=== PATIENT | male | born 1950 | race African-American/Black ===

== ENCOUNTER 2017-10-18 21:39 | Emergency (ER) | payer MEDICAID, OTHER ==
[~2017-10-18] VITALS: Ht 188 cm; Wt 68.0 kg
[~2017-10-18 21:39] MED LIST: ALBU18HF2 IH; MOME13HF INH; TIOT18CA3 IH
[2017-10-19] MEDS ORDERED: IPRATROPIUM/ALBUTEROL 0.5-3(2.5)MG/3ML NEB HHN ONE ×2 (00:45→04:45)
[2017-10-19] MEDS ORDERED: PREDNISONE 20MG TABLET PO ONE (00:45)
[2017-10-19 06:50] VITALS: BP 138/88
== END 2017-10-19 07:31 | disposition home or self-care (01) ==
LOC: ER 21:39
DX: J44.1 Chronic obstructive pulmonary disease with (acute) exacerbation (principal); F17.200 Nicotine dependence, unspecified, uncomplicated
CPT/HCPCS: 36415; 71010; 84484; 93005; 94640; 99285; J7512; J7620

== ENCOUNTER 2019-08-16 18:46 | Inpatient (IN) | payer MEDICARE, MEDICAID ==
[~2019-08-16] VITALS: Ht 188 cm; Wt 78.5 kg
[2019-08-16] MEDS ORDERED: METHYLPREDNISOLONE SOD SUCC 125 MG/2 ML VIAL IV STA (19:18)
[2019-08-16] MEDS ORDERED: ALBUTEROL (0.083%) 2.5MG/3ML NEB HHN STA ×2 (19:18→21:46)
[2019-08-16] MEDS ORDERED: IPRATROPIUM BROMIDE (0.02%) 0.5MG/2.5ML NEB HHN STA (19:18)
[2019-08-16] MEDS ORDERED: SODIUM CHLORIDE 0.9% 1,000 ML IV ONE (19:18)
[2019-08-16] MEDS ORDERED: MAGNESIUM 2 G PREMIX 50 ML IV STA (19:18)
[2019-08-16 19:28] LABS: BASOPHILS % 0.6 % (0.0-2.0); EOSINOPHILS % 1.6 % (0.0-5.0); LYMPHOCYTES % 24.8 % (20.0-50.0); MEAN CORPUSCULAR HEMOGLOBIN 29.1 pg (28.0-32.0); MEAN CORPUSCULAR VOLUME 87.5 fL (80.0-94.0); MEAN PLATELET VOLUME 7.4 fl (7.4-10.4); MONOCYTES % 8.7 % (2.0-8.0); NEUTROPHILS % 64.3 % (40.0-76.0); PLATELET 246 x1000/uL (130-400); RED BLOOD CELL COUNT 5.83 mill/uL (4.7-6.1); RED CELL DISTRIBUTION WIDTH 14.8 % (11.6-14.6)
[2019-08-16 19:29] LABS: CHLORIDE 107 mEq/L (98-107)
[2019-08-16 19:30] LABS: INR 1.1; PROTHROMBIN TIME 11.7 sec (9.6-11.0)
[2019-08-16] MEDS ORDERED: LORAZEPAM 0.5MG TABLET PO PRN (20:45)
[2019-08-16] MEDS ORDERED: NITROGLYCERIN 0.4MG TABLET SL SL PRN (20:45)
[2019-08-16] MEDS ORDERED: MAGNESIUM/ALUMINUM HYDROXIDE/SIMETHICONE 30ML UDC PO PRN (20:45)
[2019-08-16] MEDS ORDERED: ACETAMINOPHEN 325MG TABLET PO PRN (20:45)
[2019-08-16] MEDS ORDERED: ONDANSETRON HCL 4MG/2ML INJ IV PRN (20:45)
[2019-08-16] MEDS ORDERED: CLONIDINE 0.1MG TABLET PO PRN (20:45)
[2019-08-16] MEDS ORDERED: IPRATROPIUM/ALBUTEROL 0.5-3(2.5)MG/3ML NEB NEB PRN (20:45)
[2019-08-16] MEDS ORDERED: ZOLPIDEM TARTRATE 5MG TABLET PO PRN (20:45)
[2019-08-16] MEDS ORDERED: MORPHINE SULFATE 2 MG/ML CPJ (NOT FOR IM USE) IV ONE (21:15)
[2019-08-16 23:40] VITALS: BP 138/78
[2019-08-16] MEDS: IPRATROPIUM/ALBUTEROL 0.5-3(2.5)MG/3ML NEB HHN SCH (23:58)
[2019-08-17] VITALS (14 sets, daily range): BP systolic 107–129; BP diastolic 55–81
[2019-08-17] MEDS: ASCORBIC ACID 500 MG TABLET PO SCH ×3 (00:24→20:08)
[2019-08-17] MEDS: FAMOTIDINE 20MG TABLET PO SCH ×3 (00:24→20:08)
[2019-08-17] MEDS: GUAIFENESIN/DM 600MG/30MG ER TAB 12HR PO SCH ×3 (00:24→20:08)
[2019-08-17] MEDS: DILTIAZEM HCL 60MG TABLET PO SCH ×4 (00:25→17:43)
[2019-08-17] MEDS ORDERED: LEVOFLOXACIN 500MG PREMIX 100 ML IV NR (01:00)
[2019-08-17 01:21] LABS: CREATINE KINASE 293 IU/L (39-308)
[2019-08-17 01:22] LABS: CREATINE KINASE MB FRACTION 4.2 ng/mL (0.5-3.6)
[2019-08-17] MEDS: IPRATROPIUM/ALBUTEROL 0.5-3(2.5)MG/3ML NEB HHN SCH ×5 (05:01→21:00)
[2019-08-17] MEDS: METHYLPREDNISOLONE SOD SUCC 125 MG/2 ML VIAL IV SCH ×3 (05:48→21:25)
[2019-08-17 06:42] LABS: CREATINE KINASE 353 IU/L (39-308)
[2019-08-17 06:43] LABS: CREATINE KINASE MB FRACTION 4.8 ng/mL (0.5-3.6)
[2019-08-17 06:59] LABS: *AMPHETAMINES SCREEN URINE NEGATIVE (NEGATIVE); *BARBITURATES SCREEN URINE NEGATIVE (NEGATIVE); *BENZODIAZEPINES SCREEN URINE NEGATIVE (NEGATIVE); *COCAINE SCREEN URINE NEGATIVE (NEGATIVE)
[2019-08-17 07:00] LABS: CANNABINOID URINE SCREEN NEGATIVE (NEGATIVE); METHADONE URINE SCREEN NEGATIVE (NEGATIVE); OPIATES URINE SCREEN PRESUMTIVE POSITIVE (NEGATIVE); PHENCYCLIDINE URINE SCREEN NEGATIVE (NEGATIVE)
[2019-08-17] MEDS: ASPIRIN 325MG EC TABLET PO SCH (08:10)
[2019-08-17] MEDS: ZINC SULFATE 220 MG ( 50 ) CAPSULE PO SCH (08:10)
[2019-08-17] MEDS: ENOXAPARIN 40MG/0.4ML SYR SUBCUT SCH (08:11)
[2019-08-17] MEDS: TRAMADOL 50MG TABLET PO PRN (13:13)
[2019-08-17 14:59] LABS: BG BASE EXCESS -1.7 mmol/L (-2.0-2.0); BG CARBOXYHEMOGLOBIN 0.4 % (0.5-1.5); BG FRACTION INSPIRED OXYGEN 40; BG HCO3 ACT 22.5 mmol/L (22.0-26.0); BG METHEMOGLOBIN 0.5 % (0.0-1.5); BG OXYHEMOGLOBIN 98.1 % (94.0-97.0); BG PCO2 36.4 mmHg (35.0-45.0); BG PH 7.408 (7.350-7.450); BG PO2 144.3 mmHg (75.0-100.0); BG SAMPLE SITE RIGHT RADIAL; BG TOTAL HEMOGLOBIN 15.5 g/dL (12.0-18.0); BG VENT MODE MASK - BIPAP; BG VENT RATE 14 set
[2019-08-17] MEDS ORDERED: LEVOFLOXACIN 500MG PREMIX 100 ML IV SCH (20:00)
[2019-08-18] VITALS (25 sets, daily range): BP systolic 103–148; BP diastolic 41–108
[2019-08-18] MEDS: DILTIAZEM HCL 60MG TABLET PO SCH ×4 (00:07→18:00)
[2019-08-18] MEDS: IPRATROPIUM/ALBUTEROL 0.5-3(2.5)MG/3ML NEB HHN SCH ×6 (00:21→20:58)
[2019-08-18] MEDS: METHYLPREDNISOLONE SOD SUCC 125 MG/2 ML VIAL IV SCH ×3 (06:04→21:44)
[2019-08-18] MEDS: GUAIFENESIN 200MG/10ML SUGAR FREE UDC PO PRN ×2 (08:38→08:40)
[2019-08-18] MEDS: ZINC SULFATE 220 MG ( 50 ) CAPSULE PO SCH (08:38)
[2019-08-18] MEDS: DOCUSATE SODIUM 100MG CAPSULE PO PRN (08:38)
[2019-08-18] MEDS: FAMOTIDINE 20MG TABLET PO SCH ×2 (08:38→21:44)
[2019-08-18] MEDS: ASPIRIN 325MG EC TABLET PO SCH (08:38)
[2019-08-18] MEDS: ASCORBIC ACID 500 MG TABLET PO SCH ×2 (08:38→21:44)
[2019-08-18] MEDS: GUAIFENESIN/DM 600MG/30MG ER TAB 12HR PO SCH ×2 (08:48→22:24)
[2019-08-18] MEDS: ENOXAPARIN 40MG/0.4ML SYR SUBCUT SCH (10:24)
[2019-08-18] MEDS: CEFEPIME 1,000 MG in DEXTROSE 5% WATER 50 ML IV SCH ×2 (11:17→22:24)
[2019-08-18] MEDS: TRAMADOL 50MG TABLET PO PRN (21:45)
[2019-08-19] VITALS (27 sets, daily range): BP systolic 102–161; BP diastolic 45–106
[2019-08-19] MEDS: IPRATROPIUM/ALBUTEROL 0.5-3(2.5)MG/3ML NEB HHN SCH ×7 (00:33→21:05)
[2019-08-19] MEDS: DILTIAZEM HCL 60MG TABLET PO SCH ×5 (00:45→23:47)
[2019-08-19] MEDS: METHYLPREDNISOLONE SOD SUCC 125 MG/2 ML VIAL IV SCH ×3 (06:33→22:00)
[2019-08-19] MEDS: ASPIRIN 325MG EC TABLET PO SCH (09:08)
[2019-08-19] MEDS: ASCORBIC ACID 500 MG TABLET PO SCH ×2 (09:08→21:12)
[2019-08-19] MEDS: ENOXAPARIN 40MG/0.4ML SYR SUBCUT SCH (09:08)
[2019-08-19] MEDS: FAMOTIDINE 20MG TABLET PO SCH ×2 (09:08→21:12)
[2019-08-19] MEDS: ZINC SULFATE 220 MG ( 50 ) CAPSULE PO SCH (09:08)
[2019-08-19] MEDS: GUAIFENESIN/DM 600MG/30MG ER TAB 12HR PO SCH ×2 (09:19→21:20)
[2019-08-19] MEDS: CEFEPIME 1,000 MG in DEXTROSE 5% WATER 50 ML IV SCH ×2 (11:00→23:39)
[2019-08-19 11:32] LABS: HEMATOCRIT 46.5 % (42.0-52.0); HEMOGLOBIN 15.4 g/dL (14.0-18.0); MEAN CORPUSCULAR HEMOGLOBIN 29.1 pg (28.0-32.0); MEAN CORPUSCULAR VOLUME 87.9 fL (80.0-94.0); PLATELET 254 x1000/uL (130-400); RED CELL DISTRIBUTION WIDTH 14.7 % (11.6-14.6)
[2019-08-19 11:38] LABS: CHLORIDE 106 mEq/L (98-107)
[2019-08-19] MEDS ORDERED: TERBUTALINE SULFATE 1MG/ML VIAL SUBCUT NR (12:45)
[2019-08-19] MEDS: FLUTICASONE PROPIONATE 50MCG/SPRAY BOTTLE BOTHNSTRLS SCH (21:19)
[2019-08-20] VITALS (25 sets, daily range): BP systolic 107–154; BP diastolic 48–108
[2019-08-20] MEDS: IPRATROPIUM/ALBUTEROL 0.5-3(2.5)MG/3ML NEB HHN SCH ×6 (00:49→20:33)
[2019-08-20] MEDS: METHYLPREDNISOLONE SOD SUCC 125 MG/2 ML VIAL IV SCH ×3 (06:38→23:23)
[2019-08-20] MEDS: DILTIAZEM HCL 60MG TABLET PO SCH ×4 (06:41→23:23)
[2019-08-20 06:58] LABS: CHLORIDE 110 mEq/L (98-107)
[2019-08-20 07:03] LABS: HEMATOCRIT 45.2 % (42.0-52.0); HEMOGLOBIN 15.1 g/dL (14.0-18.0); MEAN CORPUSCULAR HEMOGLOBIN 29.4 pg (28.0-32.0); MEAN CORPUSCULAR VOLUME 87.8 fL (80.0-94.0); PLATELET 243 x1000/uL (130-400); RED BLOOD CELL COUNT 5.15 mill/uL (4.7-6.1); RED CELL DISTRIBUTION WIDTH 14.7 % (11.6-14.6)
[2019-08-20] MEDS: ENOXAPARIN 40MG/0.4ML SYR SUBCUT SCH (09:28)
[2019-08-20] MEDS: FAMOTIDINE 20MG TABLET PO SCH ×2 (09:28→21:40)
[2019-08-20] MEDS: ASCORBIC ACID 500 MG TABLET PO SCH ×2 (09:28→21:40)
[2019-08-20] MEDS: GUAIFENESIN/DM 600MG/30MG ER TAB 12HR PO SCH ×2 (09:29→21:56)
[2019-08-20] MEDS: ASPIRIN 325MG EC TABLET PO SCH (09:29)
[2019-08-20] MEDS: ZINC SULFATE 220 MG ( 50 ) CAPSULE PO SCH (09:29)
[2019-08-20] MEDS: FLUTICASONE PROPIONATE 50MCG/SPRAY BOTTLE BOTHNSTRLS SCH ×2 (09:41→21:40)
[2019-08-20] MEDS: CEFEPIME 1,000 MG in DEXTROSE 5% WATER 50 ML IV SCH ×2 (11:00→23:17)
[2019-08-20] MEDS ORDERED: TERBUTALINE SULFATE 1MG/ML VIAL SUBCUT SCH (17:00)
[2019-08-20] MEDS: THEOPHYLLINE ANHYDROUS 80 MG/15 ML 120ML PO SCH (21:57)
[2019-08-21] VITALS (12 sets, daily range): BP systolic 124–142; BP diastolic 72–91
[2019-08-21] MEDS: IPRATROPIUM/ALBUTEROL 0.5-3(2.5)MG/3ML NEB HHN SCH ×6 (00:35→20:13)
[2019-08-21] MEDS: ACETYLCYSTEINE 100MG/ML 10% VIAL 4ML INH SCH ×4 (00:35→15:38)
[2019-08-21] MEDS: METHYLPREDNISOLONE SOD SUCC 125 MG/2 ML VIAL IV SCH ×3 (05:23→17:27)
[2019-08-21] MEDS: DILTIAZEM HCL 60MG TABLET PO SCH ×3 (05:25→17:27)
[2019-08-21 06:50] LABS: HEMATOCRIT 46.3 % (42.0-52.0); HEMOGLOBIN 15.2 g/dL (14.0-18.0); MEAN CORPUSCULAR HEMOGLOBIN 28.8 pg (28.0-32.0); MEAN CORPUSCULAR VOLUME 87.6 fL (80.0-94.0); PLATELET 245 x1000/uL (130-400); RED BLOOD CELL COUNT 5.28 mill/uL (4.7-6.1); RED CELL DISTRIBUTION WIDTH 14.7 % (11.6-14.6)
[2019-08-21 07:49] LABS: CHLORIDE 108 mEq/L (98-107)
[2019-08-21] MEDS: THEOPHYLLINE ANHYDROUS 80 MG/15 ML 120ML PO SCH ×4 (08:01→21:51)
[2019-08-21] MEDS: ASPIRIN 325MG EC TABLET PO SCH (08:02)
[2019-08-21] MEDS: ASCORBIC ACID 500 MG TABLET PO SCH ×2 (08:02→21:48)
[2019-08-21] MEDS: ZINC SULFATE 220 MG ( 50 ) CAPSULE PO SCH (08:02)
[2019-08-21] MEDS: DOCUSATE SODIUM 100MG CAPSULE PO PRN (08:02)
[2019-08-21] MEDS: FAMOTIDINE 20MG TABLET PO SCH ×2 (08:02→21:48)
[2019-08-21] MEDS: FLUTICASONE PROPIONATE 50MCG/SPRAY BOTTLE BOTHNSTRLS SCH ×2 (08:03→21:49)
[2019-08-21] MEDS: ENOXAPARIN 40MG/0.4ML SYR SUBCUT SCH (08:03)
[2019-08-21] MEDS: GUAIFENESIN/DM 600MG/30MG ER TAB 12HR PO SCH ×2 (08:45→22:09)
[2019-08-21] MEDS: GUAIFENESIN 200MG/10ML SUGAR FREE UDC PO PRN (08:55)
[2019-08-21 10:21] LABS: BG BASE EXCESS 1.7 mmol/L (-2.0-2.0); BG CARBOXYHEMOGLOBIN 0.5 % (0.5-1.5); BG DEOXYHEMOGLOBIN 2.1 % (0.0-5.0); BG HCO3 ACT 26.6 mmol/L (22.0-26.0); BG METHEMOGLOBIN 0.4 % (0.0-1.5); BG OXYGEN SATURATION 97.9 % (92.0-98.5); BG PO2 101.1 mmHg (75.0-100.0); BG SAMPLE SITE RIGHT BRACHIAL; BG TOTAL HEMOGLOBIN 16.7 g/dL (12.0-18.0); BG VENT MODE MASK - BIPAP; BG VENT RATE 14 set
[2019-08-21] MEDS: CEFEPIME 1,000 MG in DEXTROSE 5% WATER 50 ML IV SCH ×2 (12:11→22:11)
[2019-08-22] VITALS (12 sets, daily range): BP systolic 108–144; BP diastolic 58–97
[2019-08-22] MEDS: METHYLPREDNISOLONE SOD SUCC 125 MG/2 ML VIAL IV SCH ×4 (00:46→19:15)
[2019-08-22] MEDS: DILTIAZEM HCL 60MG TABLET PO SCH ×4 (00:47→19:16)
[2019-08-22] MEDS: IPRATROPIUM/ALBUTEROL 0.5-3(2.5)MG/3ML NEB HHN SCH ×7 (00:55→20:21)
[2019-08-22] MEDS: ACETYLCYSTEINE 100MG/ML 10% VIAL 4ML INH SCH ×2 (06:06→09:19)
[2019-08-22] MEDS: THEOPHYLLINE ANHYDROUS 80 MG/15 ML 120ML PO SCH ×4 (09:13→21:53)
[2019-08-22] MEDS: FLUTICASONE PROPIONATE 50MCG/SPRAY BOTTLE BOTHNSTRLS SCH ×2 (09:13→20:47)
[2019-08-22] MEDS: ENOXAPARIN 40MG/0.4ML SYR SUBCUT SCH (09:14)
[2019-08-22] MEDS: ASPIRIN 325MG EC TABLET PO SCH (09:14)
[2019-08-22] MEDS: FAMOTIDINE 20MG TABLET PO SCH ×2 (09:14→20:46)
[2019-08-22] MEDS: DOCUSATE SODIUM 100MG CAPSULE PO PRN (09:14)
[2019-08-22] MEDS: ZINC SULFATE 220 MG ( 50 ) CAPSULE PO SCH (09:14)
[2019-08-22] MEDS: ASCORBIC ACID 500 MG TABLET PO SCH ×2 (09:14→20:46)
[2019-08-22 10:04] LABS: HEMATOCRIT 47.2 % (42.0-52.0); HEMOGLOBIN 15.7 g/dL (14.0-18.0); MEAN CORPUSCULAR HEMOGLOBIN 29.1 pg (28.0-32.0); MEAN CORPUSCULAR VOLUME 87.3 fL (80.0-94.0); PLATELET 271 x1000/uL (130-400); RED CELL DISTRIBUTION WIDTH 14.4 % (11.6-14.6)
[2019-08-22 10:21] LABS: CHLORIDE 106 mEq/L (98-107)
[2019-08-22] MEDS: GUAIFENESIN/DM 600MG/30MG ER TAB 12HR PO SCH ×2 (11:57→20:46)
[2019-08-22] MEDS: CEFEPIME 1,000 MG in DEXTROSE 5% WATER 50 ML IV SCH ×2 (12:05→22:03)
[2019-08-22] MEDS: BENZONATATE 100MG CAPSULE PO SCH ×2 (15:09→21:53)
[2019-08-23] VITALS (12 sets, daily range): BP systolic 124–158; BP diastolic 61–101
[2019-08-23] MEDS: DILTIAZEM HCL 60MG TABLET PO SCH ×5 (00:01→23:08)
[2019-08-23] MEDS: METHYLPREDNISOLONE SOD SUCC 125 MG/2 ML VIAL IV SCH ×5 (00:01→23:08)
[2019-08-23] MEDS: IPRATROPIUM/ALBUTEROL 0.5-3(2.5)MG/3ML NEB HHN SCH ×6 (00:32→21:01)
[2019-08-23] MEDS: BENZONATATE 100MG CAPSULE PO SCH ×3 (06:39→21:24)
[2019-08-23] MEDS: GUAIFENESIN/DM 600MG/30MG ER TAB 12HR PO SCH ×2 (08:21→20:28)
[2019-08-23] MEDS: ENOXAPARIN 40MG/0.4ML SYR SUBCUT SCH (08:21)
[2019-08-23] MEDS: ZINC SULFATE 220 MG ( 50 ) CAPSULE PO SCH (08:22)
[2019-08-23] MEDS: ASPIRIN 325MG EC TABLET PO SCH (08:22)
[2019-08-23] MEDS: ASCORBIC ACID 500 MG TABLET PO SCH ×2 (08:22→20:28)
[2019-08-23] MEDS: FAMOTIDINE 20MG TABLET PO SCH ×2 (08:22→20:28)
[2019-08-23] MEDS: DOCUSATE SODIUM 100MG CAPSULE PO PRN (08:22)
[2019-08-23] MEDS: THEOPHYLLINE ANHYDROUS 80 MG/15 ML 120ML PO SCH ×4 (08:24→20:29)
[2019-08-23] MEDS: CEFEPIME 1,000 MG in DEXTROSE 5% WATER 50 ML IV SCH ×2 (11:52→23:07)
[2019-08-23] MEDS: GUAIFENESIN/CODEINE 200-20MG/10ML UDC PO PRN ×2 (11:57→21:24)
[2019-08-23] MEDS ORDERED: BISACODYL 5MG TABLET PO PRN (12:00)
[2019-08-23] MEDS ORDERED: TERBUTALINE SULFATE 1MG/ML VIAL SUBCUT NR (12:45)
[2019-08-23] MEDS: METRONIDAZOLE 500 MG PREMIX 100 ML IV SCH ×2 (13:36→20:29)
[2019-08-23] MEDS ORDERED: IOHEXOL-350 100 ML BOTTLE ONE (14:57)
[2019-08-23] MEDS ORDERED: LACTULOSE 20G/30ML UDC PO PRN (16:30)
[2019-08-24] VITALS (12 sets, daily range): BP systolic 125–183; BP diastolic 66–99
[2019-08-24] MEDS: IPRATROPIUM/ALBUTEROL 0.5-3(2.5)MG/3ML NEB HHN SCH ×5 (00:58→16:28)
[2019-08-24] MEDS: METRONIDAZOLE 500 MG PREMIX 100 ML IV SCH ×2 (05:52→11:54)
[2019-08-24] MEDS: DILTIAZEM HCL 60MG TABLET PO SCH ×3 (05:54→12:00)
[2019-08-24] MEDS: METHYLPREDNISOLONE SOD SUCC 125 MG/2 ML VIAL IV SCH ×2 (05:55→11:55)
[2019-08-24] MEDS: BENZONATATE 100MG CAPSULE PO SCH ×3 (05:55→14:00)
[2019-08-24] MEDS: THEOPHYLLINE ANHYDROUS 80 MG/15 ML 120ML PO SCH ×3 (09:23→13:00)
[2019-08-24] MEDS: ASCORBIC ACID 500 MG TABLET PO SCH (09:24)
[2019-08-24] MEDS: ASPIRIN 325MG EC TABLET PO SCH (09:24)
[2019-08-24] MEDS: ZINC SULFATE 220 MG ( 50 ) CAPSULE PO SCH (09:24)
[2019-08-24] MEDS: ENOXAPARIN 40MG/0.4ML SYR SUBCUT SCH (09:24)
[2019-08-24] MEDS: FAMOTIDINE 20MG TABLET PO SCH (09:24)
[2019-08-24] MEDS: GUAIFENESIN/DM 600MG/30MG ER TAB 12HR PO SCH (09:24)
[2019-08-24] MEDS: DOCUSATE SODIUM 100MG CAPSULE PO PRN (09:24)
[2019-08-24] MEDS: CEFEPIME 1,000 MG in DEXTROSE 5% WATER 50 ML IV SCH (11:54)
== END 2019-08-24 18:05 | DRG 189 ==
LOC: ER 18:46 → 3WST 20:22 → SUPCPDRO 20:32 → EDBEDREQTM 20:39 → EDBEDREQ 20:39 → ENRESERV 21:50 → 3WST 23:37
PROVIDERS: ADMIT Internal Medicine; ATTEND Internal Medicine
PROC: 5A09357 Assistance with Respiratory Ventilation, Less than 24 Consecutive Hours, Continuous Positive Airway Pressure (ICD-10-PCS; principal; 2019-08-16)
PROC: 5A09357 Assistance with Respiratory Ventilation, Less than 24 Consecutive Hours, Continuous Positive Airway Pressure (ICD-10-PCS; 2019-08-17)
PROC: 5A09357 Assistance with Respiratory Ventilation, Less than 24 Consecutive Hours, Continuous Positive Airway Pressure (ICD-10-PCS; 2019-08-22)
DX: J96.00 Acute respiratory failure, unspecified whether with hypoxia or hypercapnia (principal); J44.1 Chronic obstructive pulmonary disease with (acute) exacerbation; I47.1 Supraventricular tachycardia; I50.32 Chronic diastolic (congestive) heart failure; M62.82 Rhabdomyolysis; Z87.891 Personal history of nicotine dependence; E78.5 Hyperlipidemia, unspecified; K59.00 Constipation, unspecified; E83.51 Hypocalcemia; Z79.899 Other long term (current) drug therapy
CPT/HCPCS: 36415; 36600; 71045; 71275; 80048; 80061; 80305; 82375; 82550; 82553; 82805; 82962; 83036; 83605; 83880; 84484; 85027; 93005; 93306; 93970; 94640; 94644; 94660; 99291; C1893; J0692; J1650; J1956; J2270; J2930; J3105; J3475; J3490; J7030; J7060; J7608; J7611; J7620; Q9967